=== PATIENT | female | born 1985 | race Caucasian/White ===

== ENCOUNTER → 2018-11-29 12:23 | Outpatient (CLI) | payer OTHER, SELFPAY ==
--- NOTE | 2018-11-29 | DI.MRI.S_ITS ---
PROCEDURE: MR HIP RT W CON INDICATIONS: PAIN IN RIGHT HIP TECHNIQUE: After the administration of 10 mL of dilute intra-articular Gadolinium contrast, coronal STIR of the bony pelvis; coronal and oblique axial T1 spin echo with fat saturation, axial T2 fast spin echo with fat saturation, sagittal T1 spin echo with and without fat saturation of the involved hip. COMPARISON: None. FINDINGS: Image quality: Diagnostic. Bones and joints: No acute fracture, dislocation, suspicious osseous lesion, or evidence of avascular necrosis is identified involving the right hip. No significant degenerative changes of the right hip are evident in the hyaline articular cartilage appears to be intact throughout. 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 The alpha angle of the right femoral head measures less than 55?. There is adequate distention of the right hip joint with the injected contrast. No loose intra-articular joint bodies are appreciated. The remainder of the imaged osseous structures of the pelvis demonstrate mild degenerative changes of the right sacroiliac joint. Otherwise, the included osseous structures of the pelvis are grossly unremarkable. Labrum: The acetabular labrum is noted to be intact throughout. No displaced full-thickness tears are evident. There are no paralabral cysts. Tendons and ligaments: There is mild increased signal identified involving the distal right gluteus medius and gluteus minimus tendons. Thickening of the greater trochanteric bursa is present without significant fluid contained within the bursa. The distal iliopsoas tendons and the proximal hamstrings tendons on the right are within normal limits. The ligamentum teres appears intact where visualized. Soft tissues: Visualized muscles demonstrate normal bulk and internal signal. Quadratus femoris muscle demonstrates no internal edema to suggest ischiofemoral impingement. The proximal sciatic neurovascular bundle appears normal adjacent to the hamstring tendons. No free pelvic fluid. Bladder wall thickness is normal. Genitourinary structures and bowel loops appear normal where visualized. IMPRESSION: 1. No significant degenerative changes of the right hip. 2. No right acetabular labral tears. 3. Mild right distal gluteus medius and gluteus minimus tendinopathy. 4. Mild degenerative changes of the right sacroiliac joint. Dictated by: Campos Laguerre M.D. on 11/29/2018 at 13:33 Approved by: Campos Laguerre M.D. on 11/29/2018 at 13:38
--- NOTE | 2018-11-29 | DI.RAD.S_ITS ---
PROCEDURE: FL HIP INJECTION MR/CT RT INDICATIONS: PAIN IN RIGHT HIP TECHNIQUE: The indications, alternatives, benefits, risks, and complications of the procedure were explained to the patient. Written informed consent was obtained and placed in the chart. The hip was examined fluoroscopically with the legs fixed in slight internal rotation, and a site for needle placement chosen for entry into the hip joint from an anterior approach. Care was taken to locate the common femoral artery and vein beforehand. The skin was prepped and draped in a sterile fashion, and 1% Lidocaine infiltrated from skin down to joint capsule. A spinal needle was inserted into the joint, and a small amount of iodinated contrast media injected to confirm intra-articular placement of the needle tip. This was followed by approximately 10 mL dilute solution of a gadolinium containing MR contrast agent. The needle was removed and a dressing was applied. The patient was given postprocedural instructions and sent to the MR suite for imaging. FINDINGS: A single fluoroscopic spot image of the right hip demonstrates intra-articular location of injected iodinated contrast. IMPRESSION: Successful fluoroscopically guided administration of dilute Gadolinium solution into the hip joint for MR arthrogram. Dictated by: Leonard Bolaños M.D. on 11/29/2018 at 14:15 Approved by: Leonard Bolaños M.D. on 11/29/2018 at 14:16
== END ==
PROVIDERS: PCP Radiology Diagnostic Radiology; Visit Provider Radiology Diagnostic Radiology
DX: M25.551 Pain in right hip (principal); M47.818 Spondylosis without myelopathy or radiculopathy, sacral and sacrococcygeal region; M67.98 Unspecified disorder of synovium and tendon, other site
CPT/HCPCS: 27093; 73722; 77002

== ENCOUNTER → 2019-11-07 13:01 | Outpatient (CLI) | payer OTHER, SELFPAY ==
--- NOTE | 2019-11-14 16:12 | PM.PFT.1 ---
Pulmonary Function Test Referral & Results Date Patient Seen: 11/07/19 Requesting provider: Maria Teresa Hedrick Results: The spirometry demonstrates an FVC of 4.32 L which is 118% of predicted. The FEV1 was measured at 3.44 L which is 113% of predicted. The FEV1/FVC ratio was 80 which is 95% of predicted. Following the administration of bronchodilator there was no appreciable change to above normal numbers. Lung volumes show an SVC of 4.07 L which is 116% of predicted. The diffusing capacity was measured at 28.84 which is 125% of predicted. The maximum voluntary ventilation was normal Interpretation: This study demonstrates normal pulmonary function
== END ==
PROVIDERS: PCP Radiology Diagnostic Radiology; Visit Provider General Practice
DX: J98.8 Other specified respiratory disorders (principal); Z87.09 Personal history of other diseases of the respiratory system
CPT/HCPCS: 94060; 94726; 94729

== ENCOUNTER 2020-03-31 22:59 | Emergency (ER) | payer OTHER, SELFPAY ==
[2020-03-31 23:04] VITALS: BP 130/92; PULSE 103; RESP 18; TEMP 36.8; O2SAT 99
[2020-03-31 23:39] LABS: Add Manual Diff / Slide Review NO; Basophils Absolute Auto 100 /uL (0-100); Eosinophils Absolute Auto 200 /uL (0-450); Hematocrit 37.5 % (36-46); Hemoglobin 12.7 g/dL (12.0-16.0); Lymphocytes Absolute Auto 3600 /uL (1100-4500); Lymphocytes Percent Auto 48.6 % (25-40); Mean Corpuscular HGB Conc 33.9 % (30-36); Mean Corpuscular Volume 88.4 fL (80-100); Monocytes Absolute Auto 600 /uL (0-900); Monocytes Percent Auto 7.6 % (3-14); Neutrophils Absolute Auto 3000 /uL (1500-7000); Neutrophils Percent Auto 39.8 % (50-75); Platelet Count 238 X10^3/uL (150-400); Red Blood Cell Count 4.24 X10^6/uL (4.0-5.2); White Blood Cell Count 7.4 X10^3/uL (4.5-11.0)
[2020-04-01 00:08] LABS: HCG Quantitative /Beta subunit 1987.9 mIU/mL
--- NOTE | 2020-04-01 00:13 | DI.US.S_ITS ---
PROCEDURE: US OB <= 14 WEEKS FETUS INDICATIONS: PAIN, BLEEDING; HCG 1980 OUTSIDE/PRIOR DATING DATA: Last menstrual period (LMP): 01/08/20. LMP-based estimated date of delivery (RASHIDA): 10/24/20. First dating scan (date and location): 04/01/20. Estimated date of delivery (RASHIDA) from first dating scan: 11/25/20. TECHNIQUE: Real-time scanning was performed of the fetuses and maternal pelvic organs, with image documentation. Endovaginal scanning: Performed for better visualization of the fetuses and maternal adnexal structures. COMPARISON: None. FINDINGS: Embryo: Single intrauterine gestation identified. [place]-rump measured 3.2 cm corresponds to ultrasound estimated gestational age of 6 weeks zero days. No heart motion identified. Measurement variability in dating: +/- 4 weeks by LMP, +/- 7 days by mean sac diameter (use before 6 weeks gestation if crown-rump length unable to be measured), +/- 5 days by crown-rump length (up to 8 weeks 6 days gestation), +/- 7 days by crown-rump length (up to 13 weeks 6 days gestation). Maternal organs: Ovaries are not well visualized. No gross sonographic abnormalities identified in the expected region of the adnexa.. Limited images through the kidneys demonstrate no hydronephrosis. IMPRESSION: Single intrauterine gestation with ultrasound estimated gestational age of 6 weeks 0 days. No cardiac activity identified. Recommend repeat obstetrical ultrasound in 10-14 days. Dictated by: Sarita Crain MD, PhD on 04/01/2020 at 8:14 Approved by: Sarita Crain MD, PhD on 04/01/2020 at 8:16
--- NOTE | 2020-04-01 01:46 | ED.ABDPAIN ---
HPI - Abdominal Pain General Chief Complaint: Abdominal Pain Stated Complaint: , having some bleeding Time Seen by Provider: 03/31/20 23:01 Source: patient Mode of arrival: Ambulatory Limitations: no limitations History of Present Illness HPI narrative: 34-year-old female nonsmoker with no medical problems is a at 10 weeks with a chief complaint of some spotting and lower abdominal cramping over the course of the day. She has had unremarkable up until this point. She denies any fever chills nor nausea, vomiting or diarrhea. She denies any recent injuries or other complaints. 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 MD complaint: abdominal pain Onset (ago): hour(s) Pain Consistency: intermittent Location: suprapubic Severity: mild Quality: cramping Radiation: none Relieving factors: nothing Exacerbating factors: nothing Associated symptoms: denies other symptoms Review of Systems Constitutional Constitutional: Denies chills, Denies fatigue, Denies fever(s), Denies frequent falls, Denies lethargy and Denies weakness Eyes Eyes: Denies change in vision, Denies eye discharge, Denies irritation and Denies loss of vision ENT Ears, Nose, Mouth, and Throat: Denies change in voice, Denies dizziness, Denies neck pain, Denies sore throat and Denies throat swelling Cardiovascular Cardiovascular: Denies chest pain, Denies irregular heart rhythm, Denies lightheadedness, Denies palpitations, Denies dyspnea, Denies dyspnea on exertion and Denies orthopnea Respiratory Respiratory: Denies cough, Denies dyspnea, Denies dyspnea on exertion and Denies wheezing Gastrointestinal Gastrointestinal: Denies abdominal pain, Denies change in bowel habits, Denies diarrhea, Denies nausea and Denies vomiting Genitourinary Genitourinary: Reports abnormal vaginal bleeding, Denies hematuria, Reports pelvic pain, Denies flank pain, Denies urinary incontinence and Denies urinary urgency Musculoskeletal Musculoskeletal: Denies back pain, Denies muscle weakness, Denies neck pain, Denies numbness and Denies tingling Integumentary/Breasts Skin/Breast: Denies pruritus, Denies erythema, Denies rash and Denies wounds Neurologic Neurologic: Denies behavioral changes, Denies confusion, Denies dizziness, Denies frequent falls, Denies loss of vision, Denies numbness, Denies tingling and Denies weakness Psychiatric Psychiatric: Denies anxiety, Denies behavioral changes, Denies confusion, Denies depression, Denies homicidal ideation and Denies suicidal ideation Endocrine Endocrine: Denies fatigue, Denies flushing and Denies palpitations Hematologic/Lymphatic Hematologic/Lymphatic: Denies easy bruising Allergic/Immunologic Allergic/Immunologic: Denies urticaria, Denies throat swelling and Denies wheezing Patient History Substance Use Type: does not use Exam Narrative Exam Narrative: GENERAL: [] 34 year old patient appears stated age. Well-nourished, well-developed patient, in mild distress. HEAD: Atraumatic. Normocephalic. EYES: Pupils equal round and reactive. Extraocular motions intact. No scleral icterus. No injection or drainage. ENT: Nose without bleeding, purulent drainage. Throat without erythema, tonsillar hypertrophy or exudate. Airway patent. NECK: Trachea midline. Non tender CARDIOVASCULAR: Regular rate and rhythm without murmurs, gallops, or rubs. RESPIRATORY: Clear to auscultation. Breath sounds equal bilaterally. No wheezes, rales, or rhonchi. GASTROINTESTINAL: Abdomen soft, non-tender, nondistended. EXTREMITIES: No edema or joint tenderness. BACK: Nontender without deformity or crepitance. No flank tenderness. NEURO: AOx3. SKIN: No rash or erythema of visible areas Initial Vital Signs Initial Vital Signs: Vital Signs Temperature 98.3 F 03/31/20 23:04 Pulse Rate 103 H 03/31/20 23:04 Respiratory Rate 18 03/31/20 23:04 Blood Pressure 130/92 H 03/31/20 23:04 Pulse Oximetry 99 03/31/20 23:04 Course Orders Ordered: ED Orders 03/31/20 23:35 ABO RH Type Stat Complete Blood Count AUTO DIFF Stat HCG Quantitative /Beta subunit Stat 04/01/20 00:13 US OB <= 14 weeks fetus Stat Vital Signs Vital signs: Vital Signs - 8 hr 03/31/20 23:04 Temperature 98.3 F Pulse Rate 103 H Respiratory Rate 18 Blood Pressure 130/92 H Pulse Oximetry 99 MDM - Abdominal Pain Lab Data Result diagrams: 03/31/20 23:35 Labs: Lab Results 03/31/20 03/31/20 03/31/20 Range/Units 23:35 23:35 23:35 WBC 7.4 (4.5-11.0) X10^3/uL RBC 4.24 (4.0-5.2) X10^6/uL Hgb 12.7 (12.0-16.0) g/dL Hct 37.5 (36-46) % MCV 88.4 (80-100) fL MCH 30.0 (26-34) PG MCHC 33.9 (30-36) % RDW 13.0 (11.6-14.8) % Plt Count 238 (150-400) X10^3/uL Neut % (Auto) 39.8 L (50-75) % Lymph % (Auto) 48.6 H (25-40) % Pershing % (Auto) 7.6 (3-14) % Eos % (Auto) 3.0 (2-4) % Baso % (Auto) 1.0 (0-2) % Neut # (Auto) 3000 (0109-2261) /uL Lymph # (Auto) 3600 (9305-0156) /uL Pershing # (Auto) 600 (0-900) /uL Eos # (Auto) 200 (0-450) /uL Baso # (Auto) 100 (0-100) /uL HCG, Quant 1987.9 mIU/mL Blood Type O Positive Imaging Data Pelvic US: Radiologist's Impression: Single intrauterine estimated 6 weeks 0 days. No cardiac activity. demise Discharge Plan Departure Patient Disposition: Home Clinical Impression: , spontaneous threatened Instructions: DI for Miscarriage Activity Restrictions/Additional Instructions: *You have been diagnosed with [threatened miscarriage] *What to do: *Take medications as directed *Follow up with your doctor tomorrow as planned. Let them know you were seen in the Emergency Department *Return to ER if you should have any new, worsening or concerning symptoms, such as increasing pain, bleeding through more than 1 pad per hour for multiple hours or other bothersome symptoms] Referrals: Lico Simmons [Primary Care Provider] -
[2020-04-01 01:50] VITALS: BP 135/93; PULSE 97; RESP 18; O2SAT 99
--- NOTE | 2020-04-01 02:01 | PC.NURSE ---
She left at 0052,alert ,no pain,TPa had infused,57.5 mg and normal saline 250 ml bag was infusing to clear tubing at 57.5ml per hour. Nicardapine drip was infusing at 2.5 mg per hour.
== END 2020-04-01 01:50 | disposition home or self-care (01) ==
PROVIDERS: Emergency Provider Emergency Medicine; PCP Radiology Diagnostic Radiology
DX: O03.9 Complete or unspecified spontaneous abortion without complication (principal)
CPT/HCPCS: 36415; 76801; 76817; 84702; 85025; 86900; 86901; 99283; 99284